=== PATIENT | male | born 1995 | race Caucasian/White ===

== ENCOUNTER 2017-08-17 18:26 | Emergency (ER) | payer SELFPAY ==
[~2017-08-17] VITALS: Ht 162.6 cm; Wt 216.0 kg
[2017-08-17 18:36] VITALS: BP 182/111; PULSE 114; RESP 23; TEMP 98.5; O2SAT 98
[2017-08-17 19:32] VITALS: BP 194/85; PULSE 109; RESP 20; O2SAT 97
--- NOTE | 2017-08-17 19:44 | RADRPT ---
EXAM DATE: 08/17/2017 7:32 PM EDT AGE/SEX: 22 years / Male INDICATIONS: Trauma. Pain. CLINICAL DATA: This is the patient's initial encounter. Patient reports that signs and symptoms have been present for 1 day and indicates a pain score of 6/10. MEDICAL/SURGICAL HISTORY: . Obesity. None. COMPARISON: No prior exams available for comparison. FINDINGS: Bony structures are intact and in normal alignment. Joints are intact without dislocation or signifi cant arthropathy. Osseous density is normal. Soft tissues are unremarkable. No radiopaque foreign bodies seen. CONCLUSION: No acute findings Electronically signed by: Abdulaziz Eason MD 08/17/2017 7:43 PM EDT
--- NOTE | 2017-08-17 19:45 | RADRPT ---
EXAM DATE: 08/17/2017 7:33 PM EDT AGE/SEX: 22 years / Male INDICATIONS: Trauma. Pain CLINICAL DATA: This is the patient's initial encounter. Patient reports that signs and symptoms have been present for 1 day and indicates a pain score of 6/10. MEDICAL/SURGICAL HISTORY: . Obesity None. COMPARISON: No prior exams available for comparison. FINDINGS: Bony structures are intact and in normal alignment. Osseous density is normal. Soft tissues are unre markable. No radiopaque foreign bodies seen. CONCLUSION: No acute findings. Electronically signed by: Abdulaziz Eason MD 08/17/2017 7:44 PM EDT
[2017-08-17] MEDS ORDERED: DICL75TA PO (19:54)
[2017-08-17] MEDS ORDERED: TRAM50TA PO (19:54)
[2017-08-17] MEDS ORDERED: oxyCODONE/ACETAMINOPHEN 10 MG/325 MG TAB PO ONE (20:00)
[2017-08-17] MEDS ORDERED: WHEEMIS3 (20:03)
--- NOTE | 2017-08-17 20:03 | PD ---
HPI Chief Complaint: Injury Time Seen by Provider: 18:42 Travel History International Travel<30 days: No Contact w/Intl Traveler<30days: No Traveled to known affect area: No History of Present Illness HPI 22-year-old male that presents to the ED for evaluation of injury to his right knee. Patient reports that he was playing on the beach with his dog when he heard a pop and crunching nose and his right knee and and he fell. He could not get up on his own and he had a lot of pain with flexion of his knee. He states that the pain is mostly to the knee but also to the posterior aspect of the leg. Denies any numbness, drooling, weakness. Per patient his pain is 10 out of 10. He was brought here by [facility] for evaluation of this. No history of previous injuries to this knee. Per patient he has difficulty flexing the knee without severe pain. Allergies to ibuprofen and bismuth. Has not taken anything for this. Injury occurred today. PFSH Past Medical History High Cholesterol: Yes Diabetes: Yes (PRE) Patient Takes Glucophage: No Hypertension: Yes Past Surgical History Other Surgery: Yes (PIONIDAL CYST IND BUTTOCKS) Social History Alcohol Use: Yes Tobacco Use: Yes (VAPE) Substance Use: Yes (POT) Allergies-Medications (Allergen,Severity, Reaction): Coded Allergies: bismuth subsalicylate (Verified Allergy, Unknown, 08/17/17) ibuprofen (Verified Allergy, Unknown, 08/17/17) Reported Meds & Prescriptions Reported Meds & Active Scripts Active Tramadol (Tramadol HCl) 50 Mg Tab 50 Mg PO Q6H PRN Diclofenac Sodium DR (Diclofenac Sodium) 75 Mg Tabdr 75 Mg PO BID PRN Review of Systems Except as stated in HPI: all other systems reviewed are Neg Physical Exam Narrative GENERAL: Morbidly obese SKIN: Warm and dry. HEAD: Atraumatic. Normocephalic. EYES: Pupils equal and round. No scleral icterus. No injection or drainage. ENT: No nasal bleeding or discharge. Mucous membranes pink and moist. Tongue is midline. No uvula deviation. NECK: Trachea midline. No JVD. CARDIOVASCULAR: Regular rate and rhythm. No murmurs, S3, S4. RESPIRATORY: No accessory muscle use. Clear to auscultation. Breath sounds equal bilaterally. GASTROINTESTINAL: Abdomen soft, non-tender, nondistended. Hepatic and splenic margins not palpable. MUSCULOSKELETAL: Extremities without clubbing, cyanosis, or edema. No obvious deformities. Full range of motion of the upper and lower extremities bilaterally with exception of the right knee which he has difficulty completely flexing but he is able to do it about 10. He has reproducible pain in the musculature. 2+ pulses bilaterally. Sensation intact bilaterally. No obvious lumbar, thoracic, cervical spine tenderness to palpation. No obvious ligamental injuries but hard to assess secondary to his body habitus. NEUROLOGICAL: Awake and alert. No obvious cranial nerve deficits. Motor grossly within normal limits. Five out of 5 muscle strength in the arms and legs. Normal speech. PSYCHIATRIC: Appropriate mood and affect; insight and judgment normal. Data Data Last Documented VS Vital Signs Date Time Temp Pulse Resp B/P (MAP) Pulse Ox O2 Delivery O2 Flow Rate FiO2 08/17/17 19:32 109 20 194/85 (121) 97 Room Air 08/17/17 18:36 98.5 Orders Orders Knee, Complete (4vws) (08/17/17 18:47) Tibia/Fibula (Ap/Lat) (08/17/17 18:47) Ice/Cold Pack (08/17/17 18:47) Splint Or Brace Apply/Monitor (08/17/17 18:47) Crutches (08/17/17 19:48) Oxycodone-Acetamin 10-325 Mg (Percocet 1 (08/17/17 20:00) Ed Discharge Order (08/17/17 19:57) [facility] Medical Decision Making Medical Screen Exam Complete: Yes Emergency Medical Condition: Yes Medical Record Reviewed: Yes Interpretation(s) Last Impressions Tibia/Fibula X-Ray 08/17/171846 Signed Impressions: CONCLUSION: No acute findings. Knee X-Ray 08/17/171846 Signed Impressions: CONCLUSION: No acute findings Differential Diagnosis Fracture versus sprain versus strain versus bruise versus contusion Narrative Course 22-year-old male the presents to the ED for evaluation of right knee pain after injury. Patient was properly examined and was found to have signs and symptoms concerning for injury to the knee. X-ray was ordered. X-rays show no sign of acute bony injury. At this time this appears to be possible internal derangement of the knee. Patient's body habitus likely not helping. Patient was given pain medication here. Patient will be given Jose Rafael wrap as partially patient cannot have brace secondary to his body habitus. He will given a short prescription for pain medication and instructions to follow with orthopedic surgeon the following week. See ED if worsening symptoms. Ice or warm compresses as needed. Diagnosis Primary Impression: Knee internal derangement Qualified Codes: M23.91 - Unspecified internal derangement of right knee Referrals: Rigoberto Lobo MD Patient Instructions: General Instructions, Narcotic given in the ED Departure Forms: Tests/Procedures, Work Release Enter return to work date: Aug 21, 2017 Additional Instructions: Take medications as prescribed. Follow-up with PCP or orthopaedic doctor this week See ED for any worsening symptoms. Do not drink or drive while taking pain medication. Apply ice or heat as needed for pain Med/Other Pt SpecificInfo: Prescription(s) given Scripts Tramadol (Tramadol) 50 Mg Tab 50 MG PO Q6H Y for PAIN, #20 TAB 0 Refills Prov: Sunshine Tate MD 08/17/[address] (Diclofenac Sodium DR) 75 Mg Tabdr 75 MG PO BID Y for PAIN SCALE 1 TO 10, #20 TAB 0 Refills Prov: Sunshine Tate MD 08/17/17 Disposition: 01 DISCHARGE HOME Condition: Stable Lukas Lobo Aug 17, 2017 20:03
[2017-08-18] MEDS ORDERED: DICL75TA PO (08:51)
[2017-08-18] MEDS ORDERED: TRAM50TA PO ×2 (08:51→10:33)
[2017-08-18] MEDS ORDERED: WHEEMIS3 (08:51)
[2017-08-18] MEDS ORDERED: ACET-822 PO (10:33)
[2017-08-18] MEDS ORDERED: WALKER/EXTENDED1 MIS (14:00)
== END 2017-08-17 21:18 | disposition home or self-care (01) ==
LOC: NEPC 18:26
DX: M23.91 Unspecified internal derangement of right knee (principal); E78.00 Pure hypercholesterolemia, unspecified; R73.03 Prediabetes; I10 Essential (primary) hypertension; F17.290 Nicotine dependence, other tobacco product, uncomplicated; F12.90 Cannabis use, unspecified, uncomplicated; Z88.6 Allergy status to analgesic agent; Z88.8 Allergy status to other drugs, medicaments and biological substances; Z79.899 Other long term (current) drug therapy
CPT/HCPCS: 73564; 73590; 99283

== ENCOUNTER 2017-08-18 08:03 | Observation (INO) | payer SELFPAY ==
[~2017-08-18] VITALS: Ht 165.1 cm; Wt 220.0 kg
[~2017-08-18 08:03] MED LIST: DICL75TA PO; TRAM50TA PO; WHEEMIS3
[2017-08-18 08:16] VITALS: BP 157/78; PULSE 109; RESP 20; TEMP 99; O2SAT 97
--- NOTE | 2017-08-18 08:19 | PD ---
HPI Chief Complaint: Injury Time Seen by Provider: 08:09 Travel History International Travel<30 days: No Contact w/Intl Traveler<30days: No Traveled to known affect area: No History of Present Illness HPI 22 YO M presents to the ED via EMS for evaluation of ongoing right knee pain. Onset yesterday after falling on the beach. He denies any new injury to the area. He complains of tingling in the foot. He endorses limitations to range of motion. He states his pain is currently rated 9/10, worsened by ambulation. No alleviating factors reported. The patient was seen here in the ED, diagnosed with internal derangement, discharged with prescriptions for wheelchair and pain medications. He states that he is unable to fill his pain medications or case picker a wheelchair. He states that he has no one to procure these supplies for him. He is requesting to be admitted to the hospital. PFSH Past Medical History High Cholesterol: Yes Diabetes: Yes (PRE) Hypertension: Yes Past Surgical History Other Surgery: Yes (PIONIDAL CYST IND BUTTOCKS) Social History Alcohol Use: Yes Tobacco Use: Yes (VAPE) Substance Use: Yes (POT) Allergies-Medications (Allergen,Severity, Reaction): Coded Allergies: bismuth subsalicylate (Verified Allergy, Unknown, 08/18/17) ibuprofen (Verified Allergy, Unknown, 08/18/17) Reported Meds & Prescriptions Reported Meds & Active Scripts Active Tramadol (Tramadol HCl) 50 Mg Tab 50 Mg PO Q6H PRN Tylenol Extra Strength (Acetaminophen) 500 Mg Tablet 500 Mg PO TID 5 Days Wheelchair (Device) 1 Mis Mis Ea .XX DIRECTED Review of Systems Except as stated in HPI: all other systems reviewed are Neg Physical Exam Narrative GENERAL: Well-nourished, well-developed morbidly obese white male no acute distress. SKIN: Focused skin assessment warm/dry. HEAD: Normocephalic. EYES: No scleral icterus. No injection or drainage. NECK: Supple, trachea midline. No JVD or lymphadenopathy. CARDIOVASCULAR: Regular rate and rhythm without murmurs, gallops, or rubs. RESPIRATORY: Breath sounds equal bilaterally. No accessory muscle use. GASTROINTESTINAL: Abdomen soft, non-tender, nondistended. MUSCULOSKELETAL: No cyanosis, or edema. FOCUSED RIGHT LOWER EXTREMITY EXAM: 2+ DP pulse. Tenderness to palpation on the lateral joint line and in the popliteal area. Patient is able extend to 0 and flex approximately 10-15. Neurovascularly intact distally. BACK: Nontender without obvious deformity. No CVA tenderness. Data Data Last Documented VS Vital Signs Date Time Temp Pulse Resp B/P (MAP) Pulse Ox O2 Delivery O2 Flow Rate FiO2 08/18/17 08:16 99.0 109 20 157/78 (104) 97 Orders Orders Case Management Consult (08/18/17 ) Acetamin-Hydrocod 325-5 Mg ([place] 5-325 (08/18/17 08:30) Mandatory Outpatient Referral (08/18/17 10:51) Ed Discharge Order (08/18/17 10:55) MDM Medical Decision Making Medical Screen Exam Complete: Yes Emergency Medical Condition: Yes Differential Diagnosis Internal derangement versus visit for pain management versus inability to complete ADLs versus malingering versus other Narrative Course 22 YO M presents to the ED via EMS for evaluation of ongoing right knee pain. Onset yesterday after falling on the beach. The patient was seen here in the ED , diagnosed with internal derangement, discharged with prescriptions for wheelchair and pain medications. He states that he is unable to fill his pain medications or case picker a wheelchair. He states that he has no one to procure these supplies for him. He is requesting to be admitted to the hospital. Vitals reviewed. Physical exam is reassuring. Patient was administered 5 mg [place]. I contacted case management regarding the patient's problems with procuring a wheelchair and pain medications. Pharmacy was able to fill his pain medications here. Wheelchair was also able to be provided. Mandatory outpatient consult was placed with orthopedics for follow-up. The patient is stable and discharged home. Diagnosis Primary Impression: Right medial knee pain Additional Impression: Posterior right knee pain Referrals: Orthopedist Additional Instructions: Rest, ice, elevate the extremity. Apply ice no longer than 10-15 minutes per hour a few times a day. Extra strength Tylenol and Tramadol as prescribed, as needed for pain. Toe-touch weightbearing as tolerated. Return to normal, gentle activity as tolerated. No running, jumping activities for the next few weeks. A mandatory outpatient consult has been placed on your behalf. Either the orthopedist's office or the hospital will be in touch within 1 week to schedule your follow-up appointment. If you do not receive this follow-up phone call, consult patient assistance via the hospital. Follow up with orthopedist or your primary care provider. Return to the ED for any urgent or emergent medical condition. Scripts Tramadol (Tramadol) 50 Mg Tab 50 MG PO Q6H Y for PAIN, #20 TAB 0 Refills Prov: Ari Vaughan MD 08/18/17 Acetaminophen (Tylenol Extra Strength) 500 Mg Tablet 500 MG PO TID for Pain for 5 Days, #15 Prov: Ari Vaughan MD 08/18/17 Wheelchair (Wheelchair) 1 Mis Mis EA .XX DIRECTED, #1 0 Refills Prov: Ari Vaughan MD 08/18/17 Disposition: 01 DISCHARGE HOME Condition: Stable Manuela Lau Aug 18, 2017 08:19
[2017-08-18] MEDS ORDERED: ACETAMINOPHEN/HYDROcodone 325 MG/5 MG TAB PO ONE (08:30)
[2017-08-18] MEDS ORDERED: TRAM50TA PO ×2 (08:51→10:33)
[2017-08-18] MEDS ORDERED: DICL75TA PO (08:51)
[2017-08-18] MEDS ORDERED: WHEEMIS3 (08:51)
[2017-08-18] MEDS ORDERED: ACET-822 PO (10:33)
[2017-08-18 12:00] VITALS: BP 174/88; PULSE 116; RESP 22; O2SAT 95
[2017-08-18] MEDS ORDERED: WALKER/EXTENDED1 MIS (14:00)
[2017-08-18 16:00] VITALS: BP 178/88; PULSE 98; RESP 20; O2SAT 95
[2017-08-18] MEDS ORDERED: LACTULOSE SYRUP 20 GM/30 ML CUP PO PRN (16:30)
[2017-08-18] MEDS ORDERED: SENNOSIDES 8.6 MG TAB PO PRN (16:30)
[2017-08-18] MEDS ORDERED: BISACODYL 10 MG SUPP RECTAL PRN (16:30)
[2017-08-18] MEDS ORDERED: SODIUM CHLORIDE 0.9% FLUSH 10 ML FLUSH IV FLUSH PRN (16:30)
[2017-08-18] MEDS ORDERED: MAGNESIUM HYDROXIDE SUSP 30 ML CUP PO PRN (16:30)
[2017-08-18] MEDS ORDERED: NALOXONE HCL 0.4 MG/ML AMP IV PUSH PRN (16:30)
[2017-08-18 17:48] VITALS: BP 143/74; PULSE 112; RESP 24; TEMP 99; O2SAT 94
--- NOTE | 2017-08-18 17:58 | HHI.HP ---
[facility] No Primary Care Physician Admission Diagnosis Internal derangement right knee, inability to ambulate Diagnoses: Chief Complaint: Right knee pain Travel History International Travel<30 Days: No Contact w/Intl Traveler <30 Da: No Traveled to Known Affected Are: No History of Present Illness 22-year-old male initially evaluated in the emergency room yesterday for right knee pain. Apparently he fell while he was on the beach. He was diagnosed with an internal derangement and was discharged home to follow-up outpatient with orthopedics. Patient return to the hospital today stating he was unable to fill the medications and was not able to obtain a wheelchair due to cost. The patient is morbidly obese. He was not able to ambulate safely in the emergency room. manager maritime working on obtaining a bariatric chair. However he will not be able to receive one today. Therefore I was called to admit the patient for observation until he can be provided with a wheelchair. He reports significant pain on the right knee. Pain is worse whenever he tries to dorsiflex the right foot. Review of Systems Musculoskeletal: COMPLAINS OF: Joint pain Except as stated in HPI: all other systems reviewed are Neg Past Family Social History Past Medical History Possible hypertension but is not taking any medications. Past Surgical History Pilonidal cyst surgery Reported Medications Reported Meds & Active Scripts Active Walker/Extended Frame (Device) 1 Mis Mis Ea .XX DIRECTED Tramadol (Tramadol HCl) 50 Mg Tab 50 Mg PO Q6H PRN Tylenol Extra Strength (Acetaminophen) 500 Mg Tablet 500 Mg PO TID 5 Days Wheelchair (Device) 1 Mis Mis Ea .XX DIRECTED Allergies: Coded Allergies: bismuth subsalicylate (Verified Allergy, Unknown, 08/18/17) ibuprofen (Verified Allergy, Unknown, 08/18/17) Family History Reviewed and is noncontributory. Social History Patient admits to they pain and occasional marijuana. Physical Exam Vital Signs Vital Signs Date Time Temp Pulse Resp B/P (MAP) Pulse Ox O2 Delivery O2 Flow Rate FiO2 08/18/17 17:33 6/17/18 16:00 98 20 178/88 (118) 95 Room Air 08/18/17 12:00 116 22 174/88 (116) 95 Room Air 08/18/17 08:16 99.0 109 20 157/78 (104) 97 Physical Exam GENERAL: Morbidly obese male in no acute distress SKIN: No rashes, ecchymoses or lesions. Cool and dry. HEAD: Atraumatic. Normocephalic. No temporal or scalp tenderness. EYES: Pupils equal round and reactive. Extraocular motions intact. No scleral icterus. No injection or drainage. ENT: Nose without bleeding, purulent drainage or septal hematoma. Throat without erythema, tonsillar hypertrophy or exudate. Uvula midline. Airway patent. NECK: Trachea midline. No JVD or lymphadenopathy. Supple, nontender, no meningeal signs. CARDIOVASCULAR: Regular rate and rhythm without murmurs, gallops, or rubs. RESPIRATORY: Clear to auscultation. Breath sounds equal bilaterally. No wheezes , rales, or rhonchi. GASTROINTESTINAL: Abdomen soft, non-tender, nondistended. No hepato-splenomegaly , or palpable masses. No guarding. MUSCULOSKELETAL: Right knee is Jose Rafael wrapped. Neurovascularly intact distally. Limited exam due to pain and morbid obesity. NEUROLOGICAL: Awake and alert. Cranial nerves II through XII intact. Motor and sensory grossly within normal limits. Five out of 5 muscle strength in all muscle groups. Normal speech. Caprini VTE Risk Assessment Caprini VTE Risk Assessment: No/Low Risk (score <= 1) Caprini Risk Assessment Model Point Value = 1 Point Value = 2 Point Value = 3 Point Value = 5 Age 41-60 Minor surgery BMI > 25 kg/m2 Swollen legs Varicose veins or History of unexplained or recurrent spontaneous Oral contraceptives or hormone replacement Sepsis (< 1 month) Serious lung disease, including pneumonia (< 1 month) Abnormal pulmonary function Acute myocardial infarction Congestive heart failure (< 1 month) History of inflammatory bowel disease Medical patient at bed rest Age 61-74 Arthroscopic surgery Major open surgery (> 45 min) Laparoscopic surgery (> 45 min) Malignancy Confined to bed (> 72 hours) Immobilizing plaster cast Central venous access Age >= 75 History of VTE Family history of VTE Factor V Leiden Prothrombin [id number] Lupus anticoagulant Anticardiolipin antibodies Elevated serum homocysteine Heparin-induced thrombocytopenia Other congenital or acquired thrombophilia Stroke (< 1 month) Elective arthroplasty Hip, pelvis, or leg fracture Acute spinal cord injury (< 1 month) Prophylaxis Regimen Total Risk Factor Score Risk Level Prophylaxis Regimen 0-1 Low Early ambulation 2 Moderate Order ONE of the following: *Sequential Compression Device (SCD) *Heparin 5000 units SQ BID 3-4 Higher Order ONE of the following medications: *Heparin 5000 units SQ TID *Enoxaparin/Lovenox 40 mg SQ daily (WT < 150 kg, CrCl > 30 mL/min) *Enoxaparin/Lovenox 30 mg SQ daily (WT < 150 kg, CrCl > 10-29 mL/min) *Enoxaparin/Lovenox 30 mg SQ BID (WT < 150 kg, CrCl > 30 mL/min) AND/OR *Sequential Compression Device (SCD) 5 or more Highest Order ONE of the following medications: *Heparin 5000 units SQ TID (Preferred with Epidurals) *Enoxaparin/Lovenox 40 mg SQ daily (WT < 150 kg, CrCl > 30 mL/min) *Enoxaparin/Lovenox 30 mg SQ daily (WT < 150 kg, CrCl > 10-29 mL/min) *Enoxaparin/Lovenox 30 mg SQ BID (WT < 150 kg, CrCl > 30 mL/min) AND *Sequential Compression Device (SCD) Assessment and Plan Problem List: (1) Knee internal derangement ICD Code: M23.90 - Unspecified internal derangement of unspecified knee Status: Acute Plan: Patient probably has a cruciate ligament issue. He needs outpatient follow-up with orthopedics. A mandatory referral has been placed from the emergency room. He needs a bariatric wheelchair. Case management is working on it. He can be discharged home once he gets a wheelchair. Pain control. (2) Right medial knee pain ICD Code: M25.561 - Pain in right knee Status: Acute Problem Qualifiers (1) Knee internal derangement: Qualified Codes: M23.91 - Unspecified internal derangement of right knee Viral Alicea MD Aug 18, 2017 17:58
[2017-08-18] MEDS: oxyCODONE/ACETAMINOPHEN 7.5 MG/325 MG TAB PO PRN (17:59)
[2017-08-18 20:19] VITALS: BP 133/64; PULSE 107; RESP 18; TEMP 99.3; O2SAT 93
[2017-08-18] MEDS: DOCUSATE SODIUM 50 MG/SENNA 8.6 MG TAB PO SCH (21:00)
[2017-08-18] MEDS: SODIUM CHLORIDE 0.9% FLUSH 10 ML FLUSH IV FLUSH SCH (21:28)
[2017-08-18 22:58] VITALS: BP 136/69; PULSE 103; RESP 18; TEMP 98.9; O2SAT 94
[2017-08-19] MEDS: oxyCODONE/ACETAMINOPHEN 7.5 MG/325 MG TAB PO PRN ×3 (00:42→16:14)
[2017-08-19 04:27] VITALS: BP 160/88; PULSE 117; RESP 18; TEMP 98.3; O2SAT 98
[2017-08-19] MEDS: DOCUSATE SODIUM 50 MG/SENNA 8.6 MG TAB PO SCH ×2 (08:00→20:16)
[2017-08-19] MEDS: SODIUM CHLORIDE 0.9% FLUSH 10 ML FLUSH IV FLUSH SCH ×2 (08:00→20:16)
[2017-08-19 09:46] VITALS: BP 136/82; PULSE 96; RESP 20; TEMP 98.1; O2SAT 99
--- NOTE | 2017-08-19 10:21 | HHI.PR ---
Subjective Remarks Patient reports that is the pain was hyperacute, was trying to get up from a sitting position while he was at the beach and had felt his leg twisted in an abnormal fashion, it is hard for him to describe the exact mechanism. Says he is unable to essentially dorsiflex and plantarflex his foot, has a lot of pain in his thigh, not just his knee. Objective Vital Signs Date Time Temp Pulse Resp B/P (MAP) Pulse Ox O2 Delivery O2 Flow Rate FiO2 08/19/17 09:46 98.1 96 20 136/82 (100) 99 08/19/17 04:27 98.3 117 18 160/88 (112) 98 08/18/17 22:58 98.9 103 18 136/69 (91) 94 08/18/17 20:19 99.3 107 18 133/64 (87) 93 08/18/17 17:48 99.0 112 24 143/74 (97) 94 08/18/17 17:33 08/18/17 16:00 98 20 178/88 (118) 95 Room Air 08/18/17 12:00 116 22 174/88 (116) 95 Room Air I/O 08/18/17 08/18/17 08/18/17 08/19/17 08/19/17 08/19/17 07:00 15:00 23:00 07:00 15:00 23:00 Intake Total 24 ml Output Total 350 ml Balance -326 ml Intake Oral 24 ml Output Urine Total 350 ml # Voids 1 Objective Remarks Has pain elicited in his thigh upon passive hip flexion, is unable to actively flex his right hip, unable to actively flex or plantarflex his foot/ankle, does tolerate passive plantar flexion and dorsiflexion well. A/P Assessment and Plan (1) inability to ambulate -Secondary to right leg immobility, unable to bear weight and unable to flex his hip. Possible tendon tear/rupture as the patient has poor active hip flexion and is unable to dorsiflex his foot actively. Will consult orthopedics (2) Right medial knee pain -Knee x-ray negative. Could be muscle sprain versus ligament sprain. Will defer to orthopedics if MRI is needed now or outpatient if at all. In the meantime a bariatric wheelchair is pending per case management as requested since yesterday at the time of admission. Edwin Herman MD Aug 19, 2017 10:21
[2017-08-19] MEDS ORDERED: WALKER/ADULT/FO1 MIS (11:40)
[2017-08-19 13:59] VITALS: BP 137/83; PULSE 95; RESP 15; TEMP 98.1; O2SAT 95
[2017-08-19 18:40] VITALS: BP 122/70; PULSE 95; RESP 18; TEMP 98.3; O2SAT 97
--- NOTE | 2017-08-19 19:42 | PD.CONS ---
HPI Service Orthopedic Surgeons Consult Requested By Reason for Consult right knee pain Primary Care Physician No Primary Care Physician Admission Diagnosis Internal derangement right knee, inability to ambulate Diagnoses: (1) Knee internal derangement (2) Right medial knee pain Diagnosis: Principal Chief Complaint: right knee pain History of Present Illness 22-year-old male initially evaluated in the emergency room yesterday for right knee pain. [place] He was diagnosed with an internal derangement and was discharged home to follow-up outpatient with orthopedics. Patient return to the hospital today stating he was unable to fill the medications and was not able to obtain a wheelchair due to cost. The patient is morbidly obese. He was not able to ambulate safely in the emergency room. member of technical staff working on obtaining a bariatric chair. However he will not be able to receive one today. He reports significant pain on the right knee. Review of Systems Constitutional: DENIES: Fever Endocrine: DENIES: Heat/cold intolerance Eyes: DENIES: Blurred vision Ears, nose, mouth, throat: DENIES: Throat pain Respiratory: DENIES: Cough Cardiovascular: DENIES: Chest pain Gastrointestinal: DENIES: Abdominal pain Genitourinary: DENIES: Urinary incontinence Musculoskeletal: COMPLAINS OF: Joint pain Integumentary: DENIES: Rash Hematologic/lymphatic: DENIES: Bruising Immunologic/allergic: DENIES: Eczema Neurologic: DENIES: Abnormal gait Psychiatric: DENIES: Anxiety Past Family Social History Past Medical History Possible hypertension but is not taking any medications. Past Surgical History Pilonidal cyst surgery Reported Medications denies Allergies: Coded Allergies: bismuth subsalicylate (Verified Allergy, Unknown, 08/18/17) ibuprofen (Verified Allergy, Unknown, 08/18/17) Active Ordered Medications Current Medications Medications (Trade) Dose Ordered Sig/Constantin Route Start Time Stop Time Status Last Admin (NS Flush) 2 ml UNSCH PRN IV FLUSH 08/18/17 16:30 (NS Flush) 2 ml BID IV FLUSH 08/18/17 21:00 08/19/17 08:00 (Narcan Inj) 0.4 mg UNSCH PRN IV PUSH 6/17/18 16:30 (Nicol-Colace) 1 tab BID PO 08/18/17 21:00 (Milk Of Magnesia Liq) 30 ml Q12H PRN PO 08/18/17 16:30 (Senokot) 17.2 mg Q12H PRN PO 08/18/17 16:30 (Dulcolax Supp) 10 mg DAILY PRN RECTAL 08/18/17 16:30 (Lactulose Liq) 30 ml DAILY PRN PO 08/18/17 16:30 (Percocet 7.5-325 Mg) 1 tab Q4H PRN PO 08/18/17 17:45 08/19/17 16:14 Reported Meds & Active Scripts Active Walker/Adult/Folding (Device) 1 Mis Mis Ea .XX DIRECTED NEEDS BARIATRIC SIZE WALKER Walker/Extended Frame (Device) 1 Mis Mis Ea .XX DIRECTED Tramadol (Tramadol HCl) 50 Mg Tab 50 Mg PO Q6H PRN Tylenol Extra Strength (Acetaminophen) 500 Mg Tablet 500 Mg PO TID 5 Days Wheelchair (Device) 1 Mis Mis Ea .XX DIRECTED Family History Reviewed and is noncontributory. Social History Patient admits to pain meds and occasional marijuana. Physical Exam Vital Signs Vital Signs Date Time Temp Pulse Resp B/P (MAP) Pulse Ox O2 Delivery O2 Flow Rate FiO2 08/19/17 18:40 98.3 95 18 122/70 (87) 97 08/19/17 13:59 98.1 95 15 137/83 (101) 95 08/19/17 09:46 98.1 96 20 136/82 (100) 99 08/19/17 04:27 98.3 117 18 160/88 (112) 98 08/18/17 22:58 98.9 103 18 136/69 (91) 94 08/18/17 20:19 99.3 107 18 133/64 (87) 93 Physical Exam awake, alert, no acute distress. Morbidly obese Normocephalic pupils equal No JVD moist mucous membranes soft nontender abdomen nonlabored respirations regular rate right lower extremity: No significant edema or appreciable effusion. Patient has significant tenderness to palpation over the lateral aspect of his lower thigh, knee and proximal leg. Patient will not allow full range of motion due to pain. I have significant difficulty evaluating ligamentous instability due to patient's body habitus. I see no gross signs of varus or valgus laxity. Patient demonstrates positive EHL and FHL but reports significant discomfort with dorsiflexion of his foot. Sensation is intact although he reports subjectively diminished. Brisk cap refill. Left lower extremity and bilateral upper extremities: No significant deformity or tenderness to palpation. Patient actively moves all extremities without pain. Appears grossly neurovascularly intact. Brisk cap refill. No rash normal affect Assessment & Plan Assessment and Plan 22-year-old morbidly obese man with acute onset of right knee pain after twisting injury I reviewed with the patient that his radiographs demonstrate no evidence of acute fracture or instability. He could have a muscular or ligamentous injury although this is very difficult to ascertain on exam due to his body habitus, tenderness to palpation and unwillingness to range his knee. I discussed with the patient that should this be the case, often these can improve with a matter of time including nonoperative management with anti-inflammatories, gentle range of motion as tolerated and occasionally bracing. I did discuss the option of obtaining a [id number] knee brace to try to help with ambulation and mobilization. Again, he does not require this although it may allow him to mobilize easier and therefore he certainly could be fitted for 1 while in the ER. Patient can follow up in my office in 2-3 weeks should his symptoms not improve or worsen, he can be weight-bearing as tolerated and range of motion as tolerated. Caroline Scott MD Aug 19, 2017 19:42
[2017-08-19 20:45] VITALS: BP 144/76; PULSE 113; RESP 18; TEMP 98.5; O2SAT 94
[2017-08-20 00:46] VITALS: BP 139/77; PULSE 107; RESP 16; TEMP 99.3; O2SAT 92
[2017-08-20] MEDS: oxyCODONE/ACETAMINOPHEN 7.5 MG/325 MG TAB PO PRN (02:40)
[2017-08-20 05:09] VITALS: BP 121/76; PULSE 101; RESP 16; TEMP 98.4; O2SAT 95
[2017-08-20 08:30] VITALS: BP 150/78; PULSE 95; RESP 20; TEMP 97.7; O2SAT 93
[2017-08-20] MEDS ORDERED: HYDR-3366 PO (08:40)
--- NOTE | 2017-08-20 08:40 | HHI.DCPOC ---
Discharge Care Plan Diagnosis: (1) Inability to ambulate due to knee (2) Knee internal derangement (3) Unsteady gait (4) Morbidly obese Goals to Promote Your Health * To prevent worsening of your condition and complications * To maintain your health at the optimal level Directions to Meet Your Goals Take your medications as prescribed Follow your dietary instruction Follow activity as directed Keep your appointments as scheduled Take your immunizations and boosters as scheduled If your symptoms worsen call your PCP, if no PCP go to Urgent Care Center or Emergency Room Smoking is Dangerous to Your Health. Avoid second hand smoke Call the 24-hour hour crisis hotline for domestic abuse at Edwin Herman MD Aug 20, 2017 08:40
[2017-08-20] MEDS: DOCUSATE SODIUM 50 MG/SENNA 8.6 MG TAB PO SCH (09:00)
[2017-08-20] MEDS: SODIUM CHLORIDE 0.9% FLUSH 10 ML FLUSH IV FLUSH SCH (09:09)
[2017-08-20 12:00] VITALS: BP 139/89; PULSE 103; RESP 18; TEMP 98; O2SAT 94
--- NOTE | 2017-08-20 12:39 | HHI.PR ---
Subjective Remarks Patient reports he still has some numbness going down his leg. However he is able to demonstrate more hip flexion today. PT relates to me that the patient was actually able to bear weight and ambulate up to 8 feet. Objective Vital Signs Date Time Temp Pulse Resp B/P (MAP) Pulse Ox O2 Delivery O2 Flow Rate FiO2 08/20/17 08:30 97.7 95 20 150/78 (102) 93 08/20/17 05:09 98.4 101 16 121/76 (91) 95 08/20/17 00:46 99.3 107 16 139/77 (97) 92 08/19/17 20:45 98.5 113 18 144/76 (98) 94 08/19/17 18:40 98.3 95 18 122/70 (87) 97 08/19/17 13:59 98.1 95 15 137/83 (101) 95 I/O 08/19/17 08/19/17 08/19/17 08/20/17 08/20/17 08/20/17 07:00 15:00 23:00 07:00 15:00 23:00 Output Total 16 ml Balance -16 ml Output Urine Total 16 ml # Voids 2 Objective Remarks Patient shows at least 3/5 right hip flexor strength a day from a supine position No acute distress, unlabored breathing A/P Assessment and Plan (1) inability to ambulate -Appreciate orthopedics input. Nonoperative. Recommended range of motion exercises and weightbearing as tolerated. (2) Right medial knee pain -PT suspects MCL sprain/laxity. Patient has met maximal benefit from hospitalization and is clinically stable for discharge. Edwin Herman MD Aug 20, 2017 12:39
== END 2017-08-20 14:00 | disposition home or self-care (01) ==
LOC: NEPD 08:03 → NEDA 16:19 → NEPFCDU 17:33
PROVIDERS: ADMIT Hospitalist; ATTEND Hospitalist
DX: M23.91 Unspecified internal derangement of right knee (principal); R26.81 Unsteadiness on feet; E66.01 Morbid (severe) obesity due to excess calories; W01.0XXA Fall on same level from slipping, tripping and stumbling without subsequent striking against object, initial encounter; Y92.832 Beach as the place of occurrence of the external cause; R20.2 Paresthesia of skin; E78.00 Pure hypercholesterolemia, unspecified; R73.03 Prediabetes; I10 Essential (primary) hypertension; F17.200 Nicotine dependence, unspecified, uncomplicated; F12.90 Cannabis use, unspecified, uncomplicated; R20.0 Anesthesia of skin
CPT/HCPCS: 97163; 97530; 99285; G0378; G8987; G8988

== ENCOUNTER 2017-09-23 10:52 | Observation (INO) ==
[2017-09-23 11:47] LABS: Baso # (Auto) 0.1 th/mm3 (0.0-0.2); Baso % (Auto) 0.7 % (0.0-2.0); Eos # (Auto) 0.2 th/mm3 (0.0-0.4); Eos % (Auto) 1.8 % (0.0-4.0); Hemoglobin 15.5 gm/dL (13.0-17.0); Lymph # (Auto) 1.9 th/mm3 (1.0-4.8); Lymph % (Auto) 21.2 % (9.0-44.0); Mean Corpuscular HGB Conc 33.6 % (32.0-36.0); Mean Corpuscular Volume 89.3 fL (80.0-100.0); Mono # (Auto) 0.8 th/mm3 (0.0-0.9); Mono % (Auto) 8.8 % (0.0-8.0); Neut # (Auto) 6.1 th/mm3 (1.8-7.7); Neut % (Auto) 67.5 % (16.0-70.0); Platelet Count 220 th/mm3 (150-450); Red Blood Count 5.15 mil/mm3 (4.50-5.90); Red Cell Distribution Width 13.1 % (11.6-17.2); White Blood Count 9.1 th/mm3 (4.0-11.0)
[2017-09-23 12:01] LABS: Alanine Aminotransferase 92 U/L (12-78); Albumin 3.7 g/dL (3.4-5.0); Anion Gap 9 meq/L (5-15); Aspartate Aminotransferase 38 U/L (15-37); Blood Urea Nitrogen 11 mg/dL (7-18); Calcium 9.2 mg/dL (8.5-10.1); Carbon Dioxide 25.3 meq/L (21.0-32.0); Chloride 106 meq/L (98-107); Glomerular Filtration Rate Greater Than 89 mL/min (>89); Glucose,Random 112 mg/dL (74-106); Sodium 140 meq/L (136-145)
[2017-09-23 12:05] LABS: Alkaline Phosphatase 112 U/L (45-117); Creatine Kinase 128 U/L (39-308); Total Protein 7.8 g/dL (6.4-8.2)
[2017-09-23 12:17] LABS: Creatine Kinase MB 0.9 ng/mL (0.5-3.6)
--- NOTE | 2017-09-23 12:27 | ED ---
HPI General Chief Complaint: Chest Pain Stated Complaint: Left Flank Pain Time Seen by Provider: 09/23/17 11:16 Source: patient Mode of arrival: ambulatory Limitations: no limitations History of Present Illness HPI narrative: Patient is a 22-year-old male with history of hypertension, prediabetes, hypothyroidism, kidney stones, presents the emergency room for evaluation of chest pain and left-sided back pain. Patient reports that for the past 2 days, he has been having chest pain. Chest pain is substernal in nature, reports that pain feels like a sharp and stabbing sensation to his chest. Patient reports that he does feel sweaty with this chest pain, dizzy, denies any nausea vomiting with this. Patient reports that nothing makes chest pain better or worse. he does not have any shortness of breath with this chest pain. Patient also reports that he has been having left-sided flank pain for the past 3 days, patient reports that he last urinated around 1 AM this morning , reports that pain feels like a kidney stone pain. Denies fever/chills. Denies dysuria, denies urinary urgency or frequency or hematuria. Complete Quality Measures for STEMI Alert Patients Related Data Home Medications Medication Instructions Recorded Confirmed No Known Home Medications 09/23/17 09/23/17 Allergies Allergy/AdvReac Type Severity Reaction Status Date / Time bismuth subsalicylate Allergy Unknown Verified 08/18/17 08:18 ibuprofen Allergy Unknown Verified 08/18/17 08:18 Review of Systems Except as stated in HPI: all other systems reviewed are negative FOR[facility]LY [facility] Medical History Medical History Depression (Acute) Hypothyroidism (Acute) Suicidal ideation (Acute) Hypertension (Acute) Social History Social History Substance History: Active Abuse Second Hand Smoke Exposure: No Smoking Status: Current every day smoker Tobacco Type: E-Cigarettes How Often Do You Have a Drink Containing Alcohol: 4 or more times a week Recent Travel in [facility] within the Last 8 Weeks: No Recent Out of Country Travel within the Last 8 Weeks: No Substance Abuse Detail Marijuana: Substance Use Status: Active Route Used Substance Abuse: Inhalation Reason for Use: Calm Down Immunization History Tetanus Immunization: <5 Years Hx Influenza Vaccine This Season: Yes Exam Narrative Exam Narrative: GENERAL: Moderate distress SKIN: Focused skin assessment warm/dry. HEAD: Atraumatic. Normocephalic. EYES: Pupils equal and round. No scleral icterus. No injection or drainage. ENT: No nasal bleeding or discharge. Mucous membranes pink and moist. NECK: Trachea midline. No JVD. CARDIOVASCULAR: Tachycardia. No murmur appreciated. RESPIRATORY: No accessory muscle use. Clear to auscultation. Breath sounds equal bilaterally. GASTROINTESTINAL: Abdomen soft, non-tender, nondistended. Hepatic and splenic margins not palpable. MUSCULOSKELETAL: No obvious deformities. No clubbing. No cyanosis. No edema. NEUROLOGICAL: Awake and alert. No obvious cranial nerve deficits. Motor grossly within normal limits. Normal speech. PSYCHIATRIC: Appropriate mood and affect; insight and judgment normal. Course Initial Documented Vital Signs Temperature 98.1 F 09/23/17 11:11 Pulse Rate 92 H 09/23/17 11:11 Respiratory Rate 16 09/23/17 11:11 Blood Pressure 141/84 H 09/23/17 11:11 Pulse Oximetry 95 09/23/17 11:11 Last Documented Vital Signs Temperature 99 F 09/23/17 11:24 Pulse Rate 97 H 09/23/17 11:30 Respiratory Rate 18 09/23/17 11:24 Blood Pressure 141/84 H 09/23/17 11:24 Pulse Oximetry 96 09/23/17 11:30 Medical Decision Making MDM Narrative Medical decision making narrative: During the course of the patients emergency department visit, the patients history, examination, and differential diagnosis were reviewed with the patient. The patient was placed on a awake overnight monitor with oximetry and frequent blood pressure monitoring. The patient had an IV access obtained and blood work sent for analysis. All labs and studies were reviewed, no obvious PE on CT, patient continues to have chest pain, plan to obs him in the chest pain unit for serial trops Patient agreeable to plan of care Patient was given a dose of rocephin for treatment of uti Differential Diagnosis Differential Diagnosis: ACS, arrhythmia, PE, pyelonephritis, kidney stone, electrolyte abnormality Lab Data Result diagrams: 09/23/17 11:35 09/23/17 11:35 Lab Results 09/23/17 09/23/17 09/23/17 Range/Units 11:35 11:35 12:42 WBC 9.1 (4.0-11.0) th/mm3 RBC 5.15 (4.50-5.90) mil/mm3 Hgb 15.5 (13.0-17.0) gm/dL Hct 46.0 (39.0-51.0) % MCV 89.3 (80.0-100.0) fL MCH 30.0 (27.0-34.0) pg MCHC 33.6 (32.0-36.0) % RDW 13.1 (11.6-17.2) % Plt Count 220 (150-450) th/mm3 MPV 8.0 (7.0-11.0) fL Prelim Diff (Auto) Slide review pending Neut % (Auto) 67.5 (16.0-70.0) % Lymph % (Auto) 21.2 (9.0-44.0) % [place] % (Auto) 8.8 H (0.0-8.0) % Eos % (Auto) 1.8 (0.0-4.0) % Baso % (Auto) 0.7 (0.0-2.0) % Neut # (Auto) 6.1 (1.8-7.7) th/mm3 Lymph # (Auto) 1.9 (1.0-4.8) th/mm3 [place] # (Auto) 0.8 (0.0-0.9) th/mm3 Eos # (Auto) 0.2 (0.0-0.4) th/mm3 Baso # (Auto) 0.1 (0.0-0.2) th/mm3 WBC Differential . Diff Scan Auto diff confirmed Differential Comment . PT 10.2 (9.8-11.6) sec INR 1.0 Ratio APTT 25.9 (24.3-30.1) sec D-Dimer Quant (PE/DVT) 0.68 H (0.00-0.50) mg/L FEU Sodium 140 (136-145) meq/L Potassium 4.0 (3.5-5.1) meq/L Chloride 106 (98-107) meq/L Carbon Dioxide 25.3 (21.0-32.0) meq/L Anion Gap 9 (5-15) meq/L BUN 11 (7-18) mg/dL Creatinine 0.74 (0.60-1.30) mg/dL Estimated GFR Greater than 89 (>89) mL/min Random Glucose 112 H (74-106) mg/dL Calcium 9.2 (8.5-10.1) mg/dL Total Bilirubin 0.3 (0.2-1.0) mg/dL AST 38 H (15-37) U/L ALT 92 H (12-78) U/L Alkaline Phosphatase 112 (45-117) U/L Total Creatine Kinase 128 (39-308) U/L CK-MB (CK-2) 0.9 (0.5-3.6) ng/mL Troponin I Less than 0.02 L (0.02-0.05) ng/mL Total Protein 7.8 (6.4-8.2) g/dL Albumin 3.7 (3.4-5.0) g/dL Urine Color (Yellw/Straw) Urine Clarity (Clear) Urine pH (5.0-8.5) Ur Specific [place] (1.002-1.035) Urine Protein (Neg-Trace) mg/dL Urine Glucose (UA) (Negative) mg/dL Urine Ketones (Negative) mg/dL Urine Occult Blood (Negative) Urine Nitrate (Negative) Urine Bilirubin (Negative) Urine Urobilinogen (Less than 2) mg/dL Ur Leukocyte Esterase (Negative) Urine RBC (0-3) /hpf Urine WBC (0-5) /hpf Ur Squamous Epith Cells (0-5) /hpf Calcium Oxalate Crystal (None) /hpf Urine Bacteria (None) /hpf Hyaline Casts (0-3) /lpf Urine Mucus (Occasional) /lpf Micro UA Comment Urine Culture Comments 09/23/17 Range/Units 14:34 WBC (4.0-11.0) th/mm3 RBC (4.50-5.90) mil/mm3 Hgb (13.0-17.0) gm/dL Hct (39.0-51.0) % MCV (80.0-100.0) fL MCH (27.0-34.0) pg MCHC (32.0-36.0) % RDW (11.6-17.2) % Plt Count (150-450) th/mm3 MPV (7.0-11.0) fL Prelim Diff (Auto) Neut % (Auto) (16.0-70.0) % Lymph % (Auto) (9.0-44.0) % [place] % (Auto) (0.0-8.0) % Eos % (Auto) (0.0-4.0) % Baso % (Auto) (0.0-2.0) % Neut # (Auto) (1.8-7.7) th/mm3 Lymph # (Auto) (1.0-4.8) th/mm3 [place] # (Auto) (0.0-0.9) th/mm3 Eos # (Auto) (0.0-0.4) th/mm3 Baso # (Auto) (0.0-0.2) th/mm3 WBC Differential Diff Scan Differential Comment PT (9.8-11.6) sec INR Ratio APTT (24.3-30.1) sec D-Dimer Quant (PE/DVT) (0.00-0.50) mg/L FEU Sodium (136-145) meq/L Potassium (3.5-5.1) meq/L Chloride (98-107) meq/L Carbon Dioxide (21.0-32.0) meq/L Anion Gap (5-15) meq/L BUN (7-18) mg/dL Creatinine (0.60-1.30) mg/dL Estimated GFR (>89) mL/min Random Glucose (74-106) mg/dL Calcium (8.5-10.1) mg/dL Total Bilirubin (0.2-1.0) mg/dL AST (15-37) U/L ALT (12-78) U/L Alkaline Phosphatase (45-117) U/L Total Creatine Kinase (39-308) U/L CK-MB (CK-2) (0.5-3.6) ng/mL Troponin I (0.02-0.05) ng/mL Total Protein (6.4-8.2) g/dL Albumin (3.4-5.0) g/dL Urine Color Yellow (Yellw/Straw) Urine Clarity Hazy H (Clear) Urine pH 6.0 (5.0-8.5) Ur Specific [place] 1.017 (1.002-1.035) Urine Protein Negative (Neg-Trace) mg/dL Urine Glucose (UA) Negative (Negative) mg/dL Urine Ketones Negative (Negative) mg/dL Urine Occult Blood Small H (Negative) Urine Nitrate Negative (Negative) Urine Bilirubin Negative (Negative) Urine Urobilinogen Less than 2 (Less than 2) mg/dL Ur Leukocyte Esterase Trace H (Negative) Urine RBC 2 (0-3) /hpf Urine WBC 11 H (0-5) /hpf Ur Squamous Epith Cells 3 (0-5) /hpf Calcium Oxalate Crystal Rare H (None) /hpf Urine Bacteria Occasional H (None) /hpf Hyaline Casts 1 (0-3) /lpf Urine Mucus Few H (Occasional) /lpf Micro UA Comment Culture indicated Urine Culture Comments Culture indicated Imaging Data Radiologist's impression: Chest X-Ray 09/23/17 11:24 CONCLUSION: Minimal bibasilar parenchymal changes, no pneumothorax Chest CTA 09/23/17 15:11 CONCLUSION: 1. Suboptimal examination with decreased sensitivity for the detection of pulmonary embolism. No gross pulmonary embolus is identified. If further evaluation is clinically indicated then a ventilation perfusion study could be performed. 2. The lungs are clear. Discharge Plan Discharge Disposition Patient Disposition: 30 Still Patient Physicians Team ED Provider: Maribel Pierson Primary Care Provider: Primary Care Adry,Angie Attending Provider: Keerthi Luciano Discharge Interventions Interventions: Vital Signs Last Done: 09/23/17 11:13 Status ED Status: Admitted Observation Patient
--- NOTE | 2017-09-23 12:33 | XR ---
EXAM DATE: 09/23/2017 12:29 PM EDT AGE/SEX: 22 years / Male INDICATIONS: Chest pain. CLINICAL DATA: This is the patient's initial encounter. Patient reports that signs and symptoms have been present for 2 days and indicates a pain score of 10/10. MEDICAL/SURGICAL HISTORY: Hypertension. Sleep apnea. None. COMPARISON: No prior exams available for comparison. FINDINGS: Limited by body habitus Minimal bibasilar parenchymal changes worse on the right. The heart and pulmonary vascularity are normal. The portion of the bony skeleton visualized is unrema rkable. . CONCLUSION: Minimal bibasilar parenchymal changes, no pneumothorax Electronically signed by: Otilio Fernandez MD 09/23/2017 12:31 PM EDT
[2017-09-23] MEDS ORDERED: Aluminum/Magnesium/Simethacone Susp 30 ML UDC PO ONE (12:52)
[2017-09-23 13:10] LABS: Activated Partial Thrombo Time 25.9 sec (24.3-30.1); Prothrombin Time 10.2 sec (9.8-11.6)
[2017-09-23 13:12] LABS: D-Dimer 0.68 mg/L FEU (0.00-0.50)
[2017-09-23 15:22] LABS: Bacteria,Urine Occasional /hpf; Bilirubin,Urine Negative (Negative); Calcium Oxalate Crystals,Urine Rare /hpf; Clarity,Urine Hazy (Clear); Color,Urine Yellow (Yellw/Straw); Glucose,Urine (UA) Negative (Negative); Hyaline Casts,Urine 1 /lpf (0-3); Leukocyte Esterase,Urine Trace (Negative); Mucus,Urine Few /lpf (Occasional); Nitrite,Urine Negative (Negative); Specific Gravity,Urine 1.017 (1.002-1.035); Squamous Epithelial Cell,Urine 3 /hpf (0-5)
--- NOTE | 2017-09-23 16:07 | CT ---
EXAM DATE: 09/23/2017 3:58 PM EDT AGE/SEX: 22 years / Male INDICATIONS: Chest pain for two days. Left side flank pain. CLINICAL DATA: This is the patient's initial encounter. Patient reports that signs and symptoms have been present for 2 days and indicates a pain score of 6/10. MEDICAL/SURGICAL HISTORY: Hypertension. None. RADIATION DOSE: 32.25 CTDI (mGy) ; Patient body habitus COMPARISON: [facility], CHEST 1V SINGLE AP, 09/23/2017. . TECHNIQUE: Volumetric scanning was performed using a multi-row detector CT scanner during bolus infu marilu of 70 ml Omnipaque 350 (iohexol) nonionic water-soluble contrast as a single exam dose. The caio a was post processed with a variety of visualization algorithms including full volume maximum intensi ty projection and sliding thin slab reformation. Using automated exposure control and adjustment of t he mA and/or kV according to patient size, radiation dose was kept as low as reasonably achievable to obtain optimal diagnostic quality images. DICOM format image data is available electronically for r eview and comparison. FINDINGS: The study is degraded by the patient's large body habitus with streak artifact limiting th e sensitivity. Pulmonary Arteries: No gross filling defects are seen in the main pulmonary arteries. The branch ves sels are not well visualized. The left and right pulmonary arteries are normal in diameter. Lung: No infiltrates seen. Effusion: None. Mediastinum: No evidence of mediastinal or hilar adenopathy. Other: The axilla is unremarkable. CONCLUSION: 1. Suboptimal examination with decreased sensitivity for the detection of pulmonary embolism. No estefani ss pulmonary embolus is identified. If further evaluation is clinically indicated then a ventilation perfusion study could be performed. 2. The lungs are clear. Electronically signed by: Nicholas De Los Santos MD 09/23/2017 4:05 PM EDT
--- NOTE | 2017-09-23 17:42 | P.HPCA ---
History of Present Illness Primary Care Physician: No Primary Care Physician Chief Complaint: Chest pain History of Present Illness: 22 year old morbidly obese male with reported history of hypothyroidism, hypertension, and borderline diabetes currently not taking any medication presents to ER for further evaluation of chest pain. Onset Saturday. Location substernal. Characterized as throbbing with intermittent sharp pain. Moderate in severity. Inhaling make pain worse. Duration constant x 3 days. No associated symptoms on nausea, vomiting, dyspnea, or diaphoresis. No precipitating or relieving factors. No recent illness, cough, or fever. Recently moved from [place] 6 months ago and has not established with a PCP. Reports last known weight 216 kg. Vapes daily and reports daily alcohol use. Family history noncontributory for early onset cardiovascular disease. - Diagnosis (1) Chest pain, atypical (2) Alcohol abuse (3) Morbid obesity (4) H/O: hypertension Review of Systems All other systems reviewed negative except as stated in HPI PMFSH - History History Provided By: Patient - Medical History Medical History: Medical History (Last Updated 09/23/17 @ 12:29 by Maribel Pierson) Depression Hypothyroidism Suicidal ideation Hypertension - Tobacco History Second Hand Smoke Exposure: No Tobacco Use In Past 30 Days: Yes Smoking Status: Current every day smoker Tobacco Type: E-Cigarettes - Alcohol History How Often Do You Have a Drink Containing Alcohol: 4 or more times a week (6 beers daily with frequent days including additional 1-2 shots of liquor. Quit drinking for 3 years, started drinking approx 6 months ago.) - Substance Use History Substance History: Active Abuse - Substance Use Type Marijuana Status: Active Route Used: Inhalation Reason for Use: Calm Down - Travel History Recent Travel in the [facility] [place] Within the Last 8 Weeks: No Recent Travel Out of the Country Within the Last 8 Weeks: No - Immunization History Tetanus Immunization: <5 Years Hx Influenza Vaccine This Season: Yes Medications and Allergies Active Medications: Active Medications Sodium Chloride (Ns Flush) 2 ml IV.FLUSH UNSCH PRN PRN Reason: FLUSH AFTER USING IV ACCESS Allergies Allergy/AdvReac Type Severity Reaction Status Date / Time bismuth subsalicylate Allergy Unknown Verified 08/18/17 08:18 ibuprofen Allergy Unknown Verified 08/18/17 08:18 Home Medications Medication Instructions Recorded Confirmed Type No Known Home Medications 09/23/17 09/23/17 History Exam Vital signs: Vital Signs 09/23/17 11:11 09/23/17 11:13 09/23/17 11:24 Temperature 98.1 F 99 F Pulse Rate 92 H 102 H 109 H Respiratory Rate 16 18 18 Blood Pressure 141/84 H 142/96 H 141/84 H Pulse Oximetry 95 97 97 09/23/17 11:30 09/23/17 16:00 Temperature Pulse Rate 97 H 99 H Respiratory Rate 18 Blood Pressure 133/93 H Pulse Oximetry 96 Intake & Output 09/22/17 09/23/17 09/23/17 18:59 06:59 18:59 Weight 216 kg Narrative: morbidly obese male in no acute distress. - Constitutional no acute distress, morbidly obese, disheveled, cooperative - Routine HEENT Exam Head: Present: normocephalic, atraumatic - Routine Neck Exam Present: supple - Routine Chest/Breast/Axilla Exam Chest wall: Present: tenderness (Chest wall pain reproduced with palpation. ) - Routine Respiratory Exam Present: decreased breath sounds. Absent: rhonchi, wheezes, crackles - Routine Cardiovascular Exam Present: RRR. Absent: murmur, gallop, rubs - Routine Abdominal Exam Present: soft. Absent: tenderness, guarding - Routine Extremities Exam Comments: Limited ROM due to body habitus. - Routine Skin Exam Present: intact, warm - Routine Neurological Exam Present: alert, oriented X3, CN II-XII intact - Routine Psychiatric Exam Present: cooperative, good insight. Absent: suicidal ideation, anxious Comments: flat affect Results 09/23/17 11:35 09/23/17 11:35 Cardiac Enzymes 09/23/17 Range/Units 11:35 AST 38 H (15-37) U/L CK-MB (CK-2) 0.9 (0.5-3.6) ng/mL Troponin I Less than 0.02 L (0.02-0.05) ng/mL Coagulation 09/23/17 Range/Units 12:42 PT 10.2 (9.8-11.6) sec APTT 25.9 (24.3-30.1) sec CBC 09/23/17 Range/Units 11:35 WBC 9.1 (4.0-11.0) th/mm3 RBC 5.15 (4.50-5.90) mil/mm3 Hgb 15.5 (13.0-17.0) gm/dL Hct 46.0 (39.0-51.0) % Plt Count 220 (150-450) th/mm3 Neut # (Auto) 6.1 (1.8-7.7) th/mm3 Lymph # (Auto) 1.9 (1.0-4.8) th/mm3 [place] # (Auto) 0.8 (0.0-0.9) th/mm3 Eos # (Auto) 0.2 (0.0-0.4) th/mm3 Baso # (Auto) 0.1 (0.0-0.2) th/mm3 Comprehensive Metabolic Panel 09/23/17 Range/Units 11:35 Sodium 140 (136-145) meq/L Potassium 4.0 (3.5-5.1) meq/L Chloride 106 (98-107) meq/L Carbon Dioxide 25.3 (21.0-32.0) meq/L BUN 11 (7-18) mg/dL Creatinine 0.74 (0.60-1.30) mg/dL Calcium 9.2 (8.5-10.1) mg/dL AST 38 H (15-37) U/L ALT 92 H (12-78) U/L Alkaline Phosphatase 112 (45-117) U/L Total Protein 7.8 (6.4-8.2) g/dL Albumin 3.7 (3.4-5.0) g/dL Intake and Output 09/23/17 09/23/17 09/23/17 06:59 14:59 22:59 Other: Weight 216 kg Patient Weight 09/24/17 06:59 Weight 216 kg EKG interpretations - EKG EKG results cardiology: WNL, sinus rhythm, normal axis, normal QRS, normal ST/T - Dysrhythmias Sinus rhythms and dysrhythmias: sinus tachycardia Caprini VTE Risk Assessment Caprini VTE Risk Assessment: No/Low Risk (score <= 1) Caprini Risk Assessment Model: Point Value = 1 Point Value = 2 Point Value = 3 Point Value = 5 Age 41-60 Minor surgery BMI > 25 kg/m2 Swollen legs Varicose veins or History of unexplained or recurrent spontaneous Oral contraceptives or hormone replacement Sepsis (< 1 month) Serious lung disease, including pneumonia (< 1 month) Abnormal pulmonary function Acute myocardial infarction Congestive heart failure (< 1 month) History of inflammatory bowel disease Medical patient at bed rest Age 61-74 Arthroscopic surgery Major open surgery (> 45 min) Laparoscopic surgery (> 45 min) Malignancy Confined to bed (> 72 hours) Immobilizing plaster cast Central venous access Age >= 75 History of VTE Family history of VTE Factor V Leiden Prothrombin [id number] Lupus anticoagulant Anticardiolipin antibodies Elevated serum homocysteine Heparin-induced thrombocytopenia Other congenital or acquired thrombophilia Stroke (< 1 month) Elective arthroplasty Hip, pelvis, or leg fracture Acute spinal cord injury (< 1 month) Prophylaxis Regimen: Total Risk Factor Score Risk Level Prophylaxis Regimen 0-1 Low Early ambulation 2 Moderate Order ONE of the following: *Sequential Compression Device (SCD) *Heparin 5000 units SQ BID 3-4 Higher Order ONE of the following medications: *Heparin 5000 units SQ TID *Enoxaparin/Lovenox 40 mg SQ daily (WT < 150 kg, CrCl > 30 mL/min) *Enoxaparin/Lovenox 30 mg SQ daily (WT < 150 kg, CrCl > 10-29 mL/min) *Enoxaparin/Lovenox 30 mg SQ BID (WT < 150 kg, CrCl > 30 mL/min) AND/OR *Sequential Compression Device (SCD) 5 or more Highest Order ONE of the following medications: *Heparin 5000 units SQ TID (Preferred with Epidurals) *Enoxaparin/Lovenox 40 mg SQ daily (WT < 150 kg, CrCl > 30 mL/min) *Enoxaparin/Lovenox 30 mg SQ daily (WT < 150 kg, CrCl > 10-29 mL/min) *Enoxaparin/Lovenox 30 mg SQ BID (WT < 150 kg, CrCl > 30 mL/min) AND *Sequential Compression Device (SCD) Assessment and Plan - Assessment (1) Chest pain, atypical Code(s): R07.89 - Other chest pain Status: Acute Plan: Admitted to chest pain center. Rule out ACS with 3 sets of ekg's and cardiac enzymes. Seen and evaluated by Dr. Keerthi Luciano. Monitor overnight. Discomfort pleuritic and musculoskeletal properties. If ruled out overnight, plans to discharge home in morning. Strongly encouraged establishing with a PCP , quitting smoking, decrease alcohol intake, and marijuana use. Discussed in supportive manner discomfort made worse due to heavy weight. Weight reduction strategies discussed. (2) Alcohol abuse Code(s): F10.10 - Alcohol abuse, uncomplicated Status: Chronic Plan: Strongly encouraged alcohol cessation. Discussed drinking no more than 2 alcohol drinks a daily, if decides to continue to drink alcohol. Discussed empty calories with alcohol intake. (3) Morbid obesity Code(s): E66.01 - Morbid (severe) obesity due to excess calories Status: Chronic Plan: Establish with a primary care provider. Encouraged making small changes in dietary habits, decreasing caloric intake, alcohol cessation, and use of marijuana. Consider counseling services as well. (4) H/O: hypertension Code(s): Z86.79 - Personal history of other diseases of the circulatory system Status: Chronic Plan: Continue to monitor.
[2017-09-23] MEDS ORDERED: Acetaminophen 500 MG Tablet PO PRN (17:54)
[2017-09-23 18:12] LABS: Creatine Kinase 116 U/L (39-308)
[2017-09-23 18:24] LABS: Creatine Kinase MB 0.8 ng/mL (0.5-3.6)
[2017-09-23 21:26] LABS: Creatine Kinase 119 U/L (39-308)
[2017-09-23 21:38] LABS: Creatine Kinase MB 0.7 ng/mL (0.5-3.6)
--- NOTE | 2017-09-24 08:40 | P.PNCA ---
Subjective Interval history: No complaints overnight. Substernal chest discomfort improved somewhat overnight , made worse with certain movements and deep breathing. Physical Exam Vital signs: Vital Signs 09/23/17 11:11 09/23/17 11:13 09/23/17 11:24 Temperature 98.1 F 99 F Pulse Rate 92 H 102 H 109 H Respiratory Rate 16 18 18 Blood Pressure 141/84 H 142/96 H 141/84 H Pulse Oximetry 95 97 97 09/23/17 11:30 09/23/17 16:00 09/23/17 18:59 Temperature 97.8 F Pulse Rate 97 H 99 H 101 H Respiratory Rate 18 16 Blood Pressure 133/93 H 133/84 Pulse Oximetry 96 97 09/23/17 19:56 09/24/17 00:00 09/24/17 00:14 Temperature 98.5 F 98.7 F Pulse Rate 95 H 98 H 100 H Respiratory Rate 17 17 Blood Pressure 138/81 133/81 Pulse Oximetry 97 93 L 09/24/17 03:48 09/24/17 03:56 09/24/17 08:00 Temperature 98.5 F 97.8 F Pulse Rate 114 H 102 H 85 Respiratory Rate 17 16 Blood Pressure 136/84 140/80 Pulse Oximetry 97 96 Intake & Output 09/23/17 09/24/17 09/24/17 18:59 06:59 18:59 Intake Total 100 / 100 Balance 100 / 100 Weight 216 kg Intake: IV 100 / 100 Rocephin Inj 1,000 MG In NS Inj 100 / 100 100 ML @ 200 mls/hr IV.SIG ONCE ONE Rx#:[id number] Other: # Voids 2 Date of Last Bowel Movement 09/22/17 Narrative: morbidly obese male sitting on side of bed upon entering room. - Constitutional no acute distress, obese, disheveled, cooperative - Routine HEENT Exam Head: Present: normocephalic, atraumatic - Routine Respiratory Exam Present: decreased breath sounds. Absent: wheezes, crackles - Routine Cardiovascular Exam Present: RRR. Absent: murmur, gallop, rubs - Routine Abdominal Exam Present: soft, normoactive bowel sounds. Absent: tenderness - Routine Extremities Exam Present: full ROM Comments: Limited ROM due to body habitus. - Routine Skin Exam Present: dry, warm - Routine Neurological Exam Present: alert, oriented X3, moving all extremities - Routine Psychiatric Exam Present: normal thought process, good insight, good judgment. Absent: anxious Comments: Flat affect, pleasant. Assessment and Plan - Assessment (1) Chest pain, atypical Code(s): R07.89 - Other chest pain Status: Acute Plan: Rulee out ACS with 3 sets of ekg's and cardiac enzymes. Monitored overnight on telemetry. Discomfort pleuritic and musculoskeletal properties. Discharge home in morning. Strongly encouraged establishing with a PCP, quitting smoking, decrease alcohol intake, and marijuana use. Discussed in supportive manner discomfort made worse due to heavy weight. Weight reduction strategies discussed in length and encouraged counseling services to determine reasons for overeating as well. Agreeable to plan of care and verbalized understanding. (2) Alcohol abuse Code(s): F10.10 - Alcohol abuse, uncomplicated Status: Chronic Plan: Strongly encouraged alcohol cessation. Discussed drinking no more than 2 alcohol drinks a daily, if decides to continue to drink alcohol. Discussed empty calories with alcohol intake. (3) Morbid obesity Code(s): E66.01 - Morbid (severe) obesity due to excess calories Status: Chronic Plan: Establish with a primary care provider. Encouraged making small changes in dietary habits, decreasing caloric intake, alcohol cessation, and use of marijuana. Consider counseling services as well. (4) H/O: hypertension Code(s): Z86.79 - Personal history of other diseases of the circulatory system Status: Chronic Plan: Continue to monitor. Encouraged decreasing sodium intake and weight lost. Establish with a PCP.
[2017-09-24] MEDS ORDERED: Lisinopril 10 MG Tablet PO ONE (08:43)
--- NOTE | 2017-09-24 10:09 | ECG ---
Date Performed: 09/23/2017 Time Performed: 20:02:01 PTAGE: 22 years EKG: Sinus rhythm NORMAL ECG PREVIOUS TRACING : 09/23/2017 11.02 DOCTOR: Madi Maldonado Interpretating Date/Time 09/24/2017 10:07:15
--- NOTE | 2017-09-24 11:13 | ECG ---
Date Performed: 09/23/2017 Time Performed: 11:02:02 PTAGE: 22 years EKG: SINUS TACHYCARDIA ABNORMAL RHYTHM ECG NO PREVIOUS TRACING DOCTOR: Madi Maldonado Interpretating Date/Time 09/24/2017 11:12:37
== END 2017-09-24 17:16 | disposition home or self-care (01) ==
LOC: NEPD 10:52 → NEDA 10:52 → NEPGCP 10:52 → NEDA 18:24 → NEPGCP 18:47
PROVIDERS: ADMIT Internal Medicine Interventional Cardiology; ATTEND Internal Medicine Interventional Cardiology